=== PATIENT | male | born 1965 | race Caucasian/White ===

== ENCOUNTER 2016-09-11 20:04 | Emergency (ER) | payer OTHER, BC ==
[~2016-09-11] VITALS: Ht 195.6 cm; Wt 125.1 kg
[~2016-09-11 20:04] MED LIST: COUMADIN,JANTOVE1 MG PO; ENDOCET 5-3251 EACH PO; FEOSOL325 MG PO; LOVENOX40 MG/0.4 SC; LYRICA; NAPROSYN500 MG PO; NEURONTIN600 MG PO; NORCO 5/3251 TABLET PO; OXYCONTIN30 MG PO; OxyCODONE PO; OxyCONTIN PO; SENOKOT S,PE1 TABLET PO; ZESTRIL,PRINIVI10 M1 PO
[2016-09-11 22:18] VITALS: BP 149/92
== END 2016-09-11 22:19 | disposition home or self-care (01) ==
LOC: EME 20:04
DX: M54.16 Radiculopathy, lumbar region (principal); G89.29 Other chronic pain; M54.5 Low back pain; Z96.651 Presence of right artificial knee joint
CPT/HCPCS: 99281; 99283; J1100; J3010

== ENCOUNTER 2017-05-10 16:38 | Emergency (ER) | payer BC ==
[~2017-05-10] VITALS: Ht 195.6 cm; Wt 129.7 kg
[2017-05-10] MEDS ORDERED: PERCOCET 5/31 TABLET PO (18:42)
[2017-05-10 18:54] VITALS: BP 144/92
== END 2017-05-10 18:55 | disposition home or self-care (01) ==
LOC: EME 16:38
DX: S83.92XA Sprain of unspecified site of left knee, initial encounter (principal); X58.XXXA Exposure to other specified factors, initial encounter; Z96.651 Presence of right artificial knee joint
CPT/HCPCS: 73564; 99281; 99283

== ENCOUNTER 2017-07-14 20:30 | Emergency (ER) | payer BC ==
[~2017-07-14] VITALS: Ht 195.6 cm; Wt 134.3 kg
[~2017-07-14 20:30] MED LIST changes: +PERCOCET 5/31 TABLET PO
[2017-07-14] MEDS ORDERED: OXYCONTIN40 MG PO (20:49)
[2017-07-14] MEDS ORDERED: NAPROXEN500 MG PO (20:50)
[2017-07-14] MEDS ORDERED: OXYCODONE HCL10 MG PO (20:50)
[2017-07-14] MEDS ORDERED: DESYREL 150 MG150 MG PO (20:50)
[2017-07-14] MEDS ORDERED: MEDROL DOSEPAK4 MG PO (21:04)
[2017-07-14 21:13] VITALS: BP 145/67
== END 2017-07-14 21:13 | disposition home or self-care (01) ==
LOC: EME 20:30
DX: M54.5 Low back pain (principal); M54.16 Radiculopathy, lumbar region; G89.29 Other chronic pain
CPT/HCPCS: 99281; 99284; J2270; J7512